=== PATIENT | male | born 2005 | race African-American/Black ===

== ENCOUNTER 2025-07-22 00:02 | Emergency (ER) | payer SELFPAY ==
[~2025-07-22] VITALS: Ht 175.3 cm; Wt 100.0 kg
[2025-07-22 00:04] VITALS: BP 126/74; PULSE 99; RESP 18; TEMP 36.7; O2SAT 98
[2025-07-22] MEDS: KETOROLAC 30MG/ML VIAL IM ONE (01:27)
[2025-07-22] MEDS ORDERED: ACETAMINOPHEN 325MG TABLET PO ONE (01:45)
== END 2025-07-22 01:57 | disposition left against medical advice (07) ==
LOC: ER 00:20
DX: M54.9 Dorsalgia, unspecified (principal); J45.909 Unspecified asthma, uncomplicated
CPT/HCPCS: 72040; 72070; 72100; 73610; 99284